=== PATIENT | male | born 1935 | race Caucasian/White ===

== ENCOUNTER → 2018-07-21 09:40 | Outpatient (CLI) | payer MEDICARE, OTHER, SELFPAY ==
[2018-07-21 13:07] LABS: Alanine Aminotransferase 29 IU/L (21-72); Albumin 4.3 g/dL (3.5-5.0); Albumin Globulin Ratio 1.7 (1.0-2.8); Alkaline Phosphatase 70 U/L (38-126); Aspartate Aminotransferase 38 IU/L (17-59); Bilirubin Total 1.1 mg/dL (0.2-1.3); Blood Urea Nitrogen 22 mg/dL (9-20); Calcium 9.3 mg/dL (8.4-10.2); Carbon Dioxide 30 mmol/L (22-32); Chloride 103 mmol/L (98-107); Estimated Glomerular Filt Rate > 60.0 mL/min (>60); Globulin 2.6 g/dL (1.7-4.1); Glucose 141 mg/dL (80-110); HEMOLYSIS < 15 (0-50); Potassium 5.1 mmol/L (3.4-5.1); Sodium 142 mmol/L (137-145); Total Protein 6.9 g/dL (6.3-8.2)
== END ==
PROVIDERS: Nurse Practitioner Family; Family Provider Family Medicine; PCP Family Medicine; Visit Provider Family Medicine
DX: M25.511 Pain in right shoulder (principal)
CPT/HCPCS: 36415; 80053

== ENCOUNTER → 2018-08-08 12:54 | Outpatient (CLI) | payer MEDICARE, OTHER, SELFPAY ==
--- NOTE | 2018-08-08 12:55 | DI.MRI.S_ITS ---
PROCEDURE: MR SHOULDER LT WO CON INDICATIONS: Shoulder pain with decreased ROM TECHNIQUE: Noncontrast oblique coronal T2 fast spin echo with fat saturation, oblique sagittal T1 spin echo and T2 fast spin echo with fat saturation, axial T1 spin echo and T2 fast spin echo with fat saturation through the shoulder. COMPARISON: [facility] [place], CR, XR SHOULDER 2+ VIEWS BILATERAL, 02/21/2018, 14:07. FINDINGS: Image quality: Prominent motion artifact is present on several imaging sequences, resulting in limited evaluation for subtle abnormalities. Rotator cuff: There is increased signal identified involving the supraspinatus and infraspinatus tendons with areas of partial thickness tearing. A complete tear is not definitively evident. The subscapularis and teres minor tendons appear to be intact. There is no significant rotator cuff muscle atrophy. Bones and bursae: No displaced fractures or dislocations are evident. No suspicious osseous lesions are present. There mild degenerative changes of the glenohumeral joint and severe degenerative changes of the chromic clavicular joint. There is no significant glenohumeral joint effusion. There is a moderate to large amount of fluid contained within the subacromial subdeltoid bursa. Capsule and soft tissues: Evaluation of the glenohumeral ligaments and of the glenoid labrum is difficult without intra-articular contrast. However, there does appear to be near circumferential tearing of the labrum, which is best appreciated on the superior and inferior margins of the labrum. Increased signal about the inferior glenohumeral ligament may be related to a ligamentous sprain. The long biceps tendon is normally positioned within the bicipital groove and appears to be grossly intact, but not well evaluated. IMPRESSION: 1. Limited MRI of the shoulder related to motion. 2. No definite full-thickness tear of the rotator cuff. 3. Tendinopathy and partial-thickness tearing of the supraspinatus and infraspinatus tendons. 4. Severe degenerative changes of the acromioclavicular joint may be resulting in subacromial impingement. 5. Large amount of fluid within the subacromial subdeltoid bursa is suspicious for bursitis. 6. Mild degenerative changes of the glenohumeral joint. 7. Probable circumferential tearing of the labrum. Dictated by: Silvestre Faust M.D. on 08/08/2018 at 16:29 Approved by: Silvestre Faust M.D. on 08/08/2018 at 16:32
== END ==
PROVIDERS: PCP Family Medicine; Visit Provider Family Medicine
DX: M25.512 Pain in left shoulder (principal); M75.112 Incomplete rotator cuff tear or rupture of left shoulder, not specified as traumatic; M19.012 Primary osteoarthritis, left shoulder
CPT/HCPCS: 73221

== ENCOUNTER → 2019-03-03 08:17 | Outpatient (CLI) | payer MEDICARE, OTHER, SELFPAY ==
[2019-03-03 09:00] LABS: Add Manual Diff / Slide Review NO; Basophils Absolute Auto 0 /uL (0-100); Basophils Percent Auto 0.2 % (0-2); Eosinophils Absolute Auto 200 /uL (0-450); Eosinophils Percent Auto 2.7 % (2-4); Hematocrit 45.5 % (41-53); Hemoglobin 14.9 g/dL (13.5-17.5); Lymphocytes Absolute Auto 1800 /uL (1100-4500); Lymphocytes Percent Auto 31.6 % (25-40); Mean Corpuscular HGB Conc 32.8 % (30-36); Mean Corpuscular Hemoglobin 30.8 PG (26-34); Mean Corpuscular Volume 93.8 fL (80-100); Monocytes Absolute Auto 500 /uL (0-900); Monocytes Percent Auto 9.5 % (3-14); Neutrophils Absolute Auto 3100 /uL (1500-7000); Platelet Count 195 X10^3/uL (150-400); Red Blood Cell Count 4.85 X10^6/uL (4.5-5.9); Red Cell Distribution Width 13.8 % (11.6-14.8); White Blood Cell Count 5.6 X10^3/uL (4.5-11.0)
[2019-03-03 09:07] LABS: Hemoglobin A1C% w Est Avg Glu 6.8 % (4.0-6.0)
[2019-03-03 09:28] LABS: Alanine Aminotransferase 30 IU/L (21-72); Albumin 4.2 g/dL (3.5-5.0); Albumin Globulin Ratio 1.6 (1.0-2.8); Alkaline Phosphatase 63 U/L (38-126); Aspartate Aminotransferase 24 IU/L (17-59); BUN Creatinine Ratio 19.2 (6-22); Bilirubin Total 1.5 mg/dL (0.2-1.3); Blood Urea Nitrogen 25 mg/dL (9-20); Carbon Dioxide 29 mmol/L (22-32); Chloride 101 mmol/L (98-107); Cholesterol 154 mg/dL (140-199); Estimated Glomerular Filt Rate 52.7 mL/min (>60); Globulin 2.7 g/dL (1.7-4.1); Glucose 162 mg/dL (80-110); HDL Cholesterol 51 mg/dL (40-60); HEMOLYSIS < 15 (0-50); LDL Cholesterol Calculated 82 mg/dL (<100); Potassium 4.6 mmol/L (3.4-5.1); Sodium 138 mmol/L (137-145); Total Protein 6.9 g/dL (6.3-8.2); Triglycerides 104 mg/dL (35-150)
[2019-03-03 14:59] LABS: TSH w/ Reflex to FT4 4.69 uIU/mL (0.47-4.68)
[2019-03-03 15:24] LABS: Free T4, Direct Thyroxine 1.22 ng/dL (0.78-2.19)
== END ==
PROVIDERS: PCP Family Medicine; Visit Provider Family Medicine
DX: E11.9 Type 2 diabetes mellitus without complications (principal); E78.5 Hyperlipidemia, unspecified; I10 Essential (primary) hypertension
CPT/HCPCS: 36415; 80053; 80061; 83036; 84439; 84443; 85025

== ENCOUNTER → 2020-08-13 08:52 | Outpatient (CLI) | payer MEDICARE, OTHER, SELFPAY ==
[2020-08-13 10:18] LABS: Add Manual Diff / Slide Review NO; Basophils Absolute Auto 0 /uL (0-100); Basophils Percent Auto 0.1 % (0-2); Eosinophils Absolute Auto 200 /uL (0-450); Eosinophils Percent Auto 3.8 % (2-4); Hematocrit 43.3 % (41-53); Hemoglobin 14.5 g/dL (13.5-17.5); Lymphocytes Absolute Auto 1700 /uL (1100-4500); Lymphocytes Percent Auto 31.5 % (25-40); Mean Corpuscular HGB Conc 33.4 % (30-36); Mean Corpuscular Hemoglobin 31.5 PG (26-34); Monocytes Absolute Auto 600 /uL (0-900); Monocytes Percent Auto 10.1 % (3-14); Neutrophils Absolute Auto 3000 /uL (1500-7000); Neutrophils Percent Auto 54.5 % (50-75); Platelet Count 175 X10^3/uL (150-400); Red Cell Distribution Width 13.5 % (11.6-14.8); White Blood Cell Count 5.4 X10^3/uL (4.5-11.0)
[2020-08-13 10:29] LABS: Alanine Aminotransferase 21 IU/L (<50); Albumin 4.1 g/dL (3.5-5.0); Albumin Globulin Ratio 1.6 (1.0-2.8); Alkaline Phosphatase 62 U/L (38-126); Aspartate Aminotransferase 24 IU/L (17-59); Bilirubin Total 1.4 mg/dL (0.2-1.3); Blood Urea Nitrogen 23 mg/dL (9-20); Calcium 9.2 mg/dL (8.4-10.2); Carbon Dioxide 30 mmol/L (22-32); Chloride 104 mmol/L (98-107); Cholesterol 149 mg/dL (140-199); Estimated Glomerular Filt Rate > 60.0 mL/min (>60); Globulin 2.5 g/dL (1.7-4.1); Glucose 164 mg/dL (80-110); HDL Cholesterol 55 mg/dL (40-60); HEMOLYSIS < 15 (0-50); LDL Cholesterol Calculated 70 mg/dL (<100); Potassium 4.5 mmol/L (3.4-5.1); Sodium 137 mmol/L (137-145); Total Protein 6.6 g/dL (6.3-8.2); Triglycerides 119 mg/dL (35-150)
[2020-08-13 10:35] LABS: Hemoglobin A1C% w Est Avg Glu 7.3 % (4.0-6.0)
[2020-08-13 10:59] LABS: TSH w/ Reflex to FT4 4.85 uIU/mL (0.47-4.68)
[2020-08-13 11:15] LABS: Creatinine Urine Random 143.8 mg/dL
[2020-08-13 11:19] LABS: Microalbumi Creatinin Ratio Ur 13.2 ug/mg CR (<30); Microalbumin Urine Random 1.9 mg/dL (0-1.6)
[2020-08-13 11:29] LABS: Free T4, Direct Thyroxine 0.87 ng/dL (0.78-2.19)
== END ==
PROVIDERS: PCP Family Medicine; Referring Provider Family Medicine; Visit Provider Family Medicine
DX: E11.9 Type 2 diabetes mellitus without complications (principal); E78.5 Hyperlipidemia, unspecified; I10 Essential (primary) hypertension; I48.91 Unspecified atrial fibrillation
CPT/HCPCS: 36415; 80053; 80061; 82043; 82570; 83036; 84439; 84443; 85025

== ENCOUNTER → 2020-10-22 14:38 | Outpatient (CLI) | payer MEDICARE, OTHER, SELFPAY ==
--- NOTE | 2020-10-22 14:42 | DI.RAD.S_ITS ---
PROCEDURE: XR ANKLE LT MIN 3V INDICATIONS: FOOT CONTUSION TECHNIQUE: 3 views of the ankle were acquired. COMPARISON: None. FINDINGS: Bones: Scattered degenerative subchondral sclerosis and spurring. Plantar calcaneal spur. Soft tissues: No tibiotalar joint effusion. Achilles tendon appears normal. IMPRESSION: Large plantar calcaneal spur No fracture. If the patient's pain or other symptoms persist, consider further evaluation with MRI Dictated by: Manuel Weston M.D. on 10/22/2020 at 15:34 Approved by: Manuel Weston M.D. on 10/22/2020 at 15:41
--- NOTE | 2020-10-22 14:42 | DI.RAD.S_ITS ---
PROCEDURE: XR FOOT LT MIN 3V INDICATIONS: FOOT CONTUSION TECHNIQUE: 3 views of the foot were acquired. COMPARISON: None. FINDINGS: Bones: No fracture. Mild 1st MTP joint degeneration and diffuse interphalangeal degenerative sclerosis and spurring. Large plantar calcaneal spur.. There is mild diffuse hindfoot and midfoot degenerative spurring and sclerosis. Soft tissues: No tibiotalar joint effusion. Achilles tendon appears normal. IMPRESSION: No fracture. Degenerative changes as above, including plantar calcaneal spur. Dictated by: Manuel Weston M.D. on 10/22/2020 at 15:41 Approved by: Manuel Weston M.D. on 10/22/2020 at 15:43
== END ==
PROVIDERS: PCP Family Medicine; Referring Provider Physician Assistant; Visit Provider Physician Assistant
DX: M79.672 Pain in left foot (principal); S90.32XA Contusion of left foot, initial encounter; M77.32 Calcaneal spur, left foot; M19.072 Primary osteoarthritis, left ankle and foot
CPT/HCPCS: 73610; 73630

== ENCOUNTER 2021-05-30 11:24 | Observation (INO) | payer MEDICARE, OTHER, SELFPAY ==
[2021-05-30] VITALS (8 sets, daily range): BP systolic 147–189; BP diastolic 66–110; PULSE 42–60; RESP 16–18; TEMP 36.2–36.4; O2SAT 95–99; BMI 30.8; BMI 31.2
--- NOTE | 2021-05-30 11:27 | ED_ITS ---
HPI - GI Bleed General Chief complaint: GI Bleed Stated complaint: urine and bowel movement with blood Time Seen by Provider: 05/30/21 11:27 History of Present Illness HPI Narrative: 86-year-old male nonsmoker with history of AFib on Pradaxa, hypertension, diabetes presents with 3 days of gradually worsening blood in his urine. He states it started dark and has become progressively more bright red and today was all blood. He denies any pain, frequency or urgency. Additionally he states that he had a large painless bowel movement today that was all bright red blood. He denies systemic symptoms such as dizziness, weakness or lightheadedness. He has had no chest pain or shortness of breath. He denies any abdominal pain. Related Data Previous Rx's Medication Instructions Recorded atorvastatin 40 mg tablet (Lipitor) 40 mg PO HS #90 tab 08/08/20 lisinopril 20 mg tablet (Zestril) 20 mg PO Q DAY #90 tab 08/08/20 metformin 500 mg tablet 500 mg PO BID #180 tab 08/08/20 (Glucophage) dabigatran etexilate 150 mg See Rx Instructions .ROUTE 09/04/20 capsule (Pradaxa) .COMPLEX #180 cap metoprolol succinate 25 mg See Rx Instructions .ROUTE 05/27/21 tablet,extended release 24 hr .COMPLEX #90 tab Allergies Allergy/AdvReac Type Severity Reaction Status Date / Time No Known Drug Allergies Allergy Verified 10/22/20 14:15 Review of Systems Review of Systems Narrative: GENERAL: See HPI HEENT: Denies sinus pain, ear pain, sore throat, difficulty swallowing, dizziness. RESPIRATORY: Denies dyspnea, cough, wheezing, hemoptysis, sputum. CARDIOVASCULAR: Denies chest pain, palpitations, orthopnea, edema, GASTROINTESTINAL: See HPI : See HPI MUSCULOSKELETAL: denies weakness, joint pain, or bony pain SKIN: Denies rash, skin lesions, or other NEUROLOGIC: Denies weakness, headache, numbness, change in speech, confusion, seizures, incoordination. PSYCHIATRIC: No concerning psychosocial issues. 12 point review of systems is negative except for those stated above Patient History Medical History Atrial fibrillation (2013) CAD (coronary artery disease) Chicken pox Colon polyps Glaucoma (2013) Hyperlipidemia Hypertension Insulin resistance Left foot pain Mumps Recurrent sinusitis (1968) Skin cancer (2010) Surgical History Anesthesia History of surgery (1977) Status post arthroscopy (2009) Family History Brother CAD (coronary artery disease) Diabetes mellitus High cholesterol Heart attack Brother Diabetes mellitus Heart disease High cholesterol Daughter Arthritis Father Heart disease Hypertension Mother Aortic valve disease Cancer High cholesterol Sister Cancer High cholesterol Sister Cancer Heavy smoker Daughter No problems noted. Social History marital status: household members: spouse Smoking Status: Never smoker alcohol intake: current substance use type: does not use Smoking Status: Never smoker Exam Narrative Exam Narrative: GENERAL: 86] year old patient appears stated age. Well- developed patient, in mild distress. HEAD: Atraumatic. Normocephalic. EYES: Pupils equal round and reactive. Extraocular motions intact. No scleral icterus. No injection or drainage. ENT: Nose without bleeding, purulent drainage. Throat without erythema, tonsillar hypertrophy or exudate. Airway patent. NECK: Trachea midline. Non tender CARDIOVASCULAR: Regular rate and rhythm without murmurs, gallops, or rubs. RESPIRATORY: Clear to auscultation. Breath sounds equal bilaterally. No wheezes, rales, or rhonchi. GASTROINTESTINAL: Abdomen soft, non-tender, nondistended. EXTREMITIES: No edema or joint tenderness. BACK: Nontender without deformity or crepitance. No flank tenderness. NEURO: AOx3. SKIN: No rash or erythema of visible areas Initial Vital Signs Initial Vital Signs: Vital Signs Temperature 97.5 F L 05/30/21 11:35 Pulse Rate 60 05/30/21 11:35 Respiratory Rate 16 05/30/21 11:35 Blood Pressure 186/81 H 05/30/21 11:35 Pulse Oximetry 99 05/30/21 11:35 Course Orders Ordered: ED Orders 05/30/21 11:40 COVID19 - ADMIT (MENDER HAND swab/PCR) Stat Complete Blood Count AUTO DIFF Stat Comprehensive Metabolic Panel Stat Magnesium Stat Partial Thromboplastin Time Stat Prothrombin Time INR Stat Troponin & CK Cardiac Panel Stat Type and Screen Stat 05/30/21 12:15 EKG-12 Lead Routine 05/30/21 12:45 UA Complete [Urinalysis and Microscopic] Stat Acetaminophen (Acetaminophen 325 Mg Tablet) 650 mg PO Q6HR PRN PRN Reason: Fever/Mild Pain (1-3) Atorvastatin Calcium (Atorvastatin 20 Mg Tablet) 40 mg PO BEDTIME [facility] Sodium Chloride (Normal Saline 0.9%) 1,000 mls @ 100 mls/hr IV CONT [facility] Last Admin: 05/30/21 16:34 Dose: 100 mls/hr Documented by: LUCAS Lisinopril (Lisinopril 20 Mg Tablet) 20 mg PO DAILY [facility] Metformin HCl (Metformin Hcl 500 Mg Tablet) 500 mg PO BIDWM [facility] Last Admin: 05/30/21 18:26 Dose: 500 mg Documented by: LUCAS Metoprolol Succinate (Metoprolol Er 25 Mg Tablet) 25 mg PO DAILY [facility] Naloxone HCl (Naloxone 0.4 Mg/Ml Vial) 0.2 mg IV Q2MIN PRN PRN Reason: Opiate Reversal Reevaluation(s) Reevaluation #1: Patient just produced another urine here which is paige blood. Consultations Consultation #1: Discussion with on-call provider, Dr. Crane, she will admit the patient and see him here in the department Vital Signs Vital signs: Vital Signs - 8 hr 05/30/21 11:35 05/30/21 11:58 05/30/21 12:01 Temperature 97.5 F L Pulse Rate 60 43 L 45 L Respiratory Rate 16 16 Blood Pressure 186/81 H 148/66 H Pulse Oximetry 99 96 96 05/30/21 12:30 05/30/21 13:00 05/30/21 13:01 Temperature Pulse Rate 51 L 47 L 46 L Respiratory Rate 16 16 16 Blood Pressure 147/110 H 189/109 H Pulse Oximetry 96 96 95 MDM - GI Bleed Lab Data Result diagrams: 05/30/21 16:15 05/30/21 11:40 Labs: Lab Results 05/30/21 05/30/21 05/30/21 Range/Units 11:40 11:40 11:40 WBC 6.4 (4.5-11.0) X10^3/uL RBC 4.98 (4.5-5.9) X10^6/uL Hgb 15.6 (13.5-17.5) g/dL Hct 46.7 (41-53) % MCV 93.8 (80-100) fL MCH 31.3 (26-34) PG MCHC 33.3 (30-36) % RDW 13.6 (11.6-14.8) % Plt Count 188 (150-400) X10^3/uL Neut % (Auto) 54.2 (50-75) % Lymph % (Auto) 32.8 (25-40) % [place] % (Auto) 10.2 (3-14) % Eos % (Auto) 2.5 (2-4) % Baso % (Auto) 0.3 (0-2) % Neut # (Auto) 3500 (0402-9573) /uL Lymph # (Auto) 2100 (1327-8325) /uL [place] # (Auto) 700 (0-900) /uL Eos # (Auto) 200 (0-450) /uL Baso # (Auto) 0 (0-100) /uL PT 13.8 H (10.1-12.7) SECONDS INR 1.2 (0.9-1.3) APTT 52 H (26.4-36.2) SECONDS Sodium 138 (137-145) mmol/L Potassium 4.4 (3.4-5.1) mmol/L Chloride 106 (98-107) mmol/L Carbon Dioxide 23 (22-32) mmol/L BUN 24 H (9-20) mg/dL Creatinine 1.24 (0.66-1.25) mg/dL Estimated GFR 55.4 L (>60) mL/min BUN/Creatinine Ratio 19.4 (6-22) Glucose 334 H (80-110) mg/dL Calcium 9.9 (8.4-10.2) mg/dL Magnesium 1.8 (1.6-2.3) mg/dL Total Bilirubin 1.6 H (0.2-1.3) mg/dL AST 27 (17-59) IU/L ALT 24 (<50) IU/L Alkaline Phosphatase 65 (38-126) U/L Total Creatine Kinase 70 (55-170) U/L CK-MB (CK-2) TNP CK-MB (CK-2) Rel Index TNP Troponin I < 0.012 (0.01-0.034) ng/mL Total Protein 7.5 (6.3-8.2) g/dL Albumin 4.5 (3.5-5.0) g/dL Globulin 3.0 (1.7-4.1) g/dL Albumin/Globulin Ratio 1.5 (1.0-2.8) Urine Color Urine Appearance Urine pH (4.5-8.0) Ur Specific [place] (1.000-1.035) Urine Protein (Negative) Urine Glucose (UA) (Negative) g/dL Urine Ketones (NEGATIVE) Urine Occult Blood (Negative) Urine Nitrate (Negative) Urine Bilirubin (NEGATIVE) Urine Urobilinogen (0.2) E.U./dL Ur Leukocyte Esterase (NEGATIVE) Urine RBC (0-5/HPF) Urine WBC (0-5/HPF) Urine Bacteria (None) Ur Culture Indicated? SARS-CoV-2 (PCR) (Negative) Blood Type Antibody Screen 05/30/21 05/30/21 05/30/21 Range/Units 11:40 11:40 12:45 WBC (4.5-11.0) X10^3/uL RBC (4.5-5.9) X10^6/uL Hgb (13.5-17.5) g/dL Hct (41-53) % MCV (80-100) fL MCH (26-34) PG MCHC (30-36) % RDW (11.6-14.8) % Plt Count (150-400) X10^3/uL Neut % (Auto) (50-75) % Lymph % (Auto) (25-40) % [place] % (Auto) (3-14) % Eos % (Auto) (2-4) % Baso % (Auto) (0-2) % Neut # (Auto) (6537-1557) /uL Lymph # (Auto) (2133-0740) /uL [place] # (Auto) (0-900) /uL Eos # (Auto) (0-450) /uL Baso # (Auto) (0-100) /uL PT (10.1-12.7) SECONDS INR (0.9-1.3) APTT (26.4-36.2) SECONDS Sodium (137-145) mmol/L Potassium (3.4-5.1) mmol/L Chloride (98-107) mmol/L Carbon Dioxide (22-32) mmol/L BUN (9-20) mg/dL Creatinine (0.66-1.25) mg/dL Estimated GFR (>60) mL/min BUN/Creatinine Ratio (6-22) Glucose (80-110) mg/dL Calcium (8.4-10.2) mg/dL Magnesium (1.6-2.3) mg/dL Total Bilirubin (0.2-1.3) mg/dL AST (17-59) IU/L ALT (<50) IU/L Alkaline Phosphatase (38-126) U/L Total Creatine Kinase (55-170) U/L CK-MB (CK-2) CK-MB (CK-2) Rel Index Troponin I (0.01-0.034) ng/mL Total Protein (6.3-8.2) g/dL Albumin (3.5-5.0) g/dL Globulin (1.7-4.1) g/dL Albumin/Globulin Ratio (1.0-2.8) Urine Color Red Urine Appearance Other Urine pH 5.0 (4.5-8.0) Ur Specific [place] 1.020 (1.000-1.035) Urine Protein 2+ H (Negative) Urine Glucose (UA) 2+ H (Negative) g/dL Urine Ketones Negative (NEGATIVE) Urine Occult Blood 3+ H (Negative) Urine Nitrate Negative (Negative) Urine Bilirubin Negative (NEGATIVE) Urine Urobilinogen 0.2 (0.2) E.U./dL Ur Leukocyte Esterase Trace H (NEGATIVE) Urine RBC >100/hpf H (0-5/HPF) Urine WBC None seen (0-5/HPF) Urine Bacteria None seen (None) Ur Culture Indicated? Cult not indicated SARS-CoV-2 (PCR) Negative (Negative) Blood Type A Negative Antibody Screen Negative MDM Narrative Medical decision making narrative: Patient on anticoagulation with bloody stool and gross hematuria will require hospitalization for trending of his blood counts and possible endoscopy. Return precautions given and questions answered to his apparent satisfaction Discharge Plan Departure Patient Disposition: Admitted as Observation Clinical Impression: Acute GI bleeding, Hematuria, Anticoagulation adequate Admit Date/Time: 05/30/21 13:21 Admit Provider: Emma Crane
[2021-05-30 11:53] LABS: Add Manual Diff / Slide Review NO; Basophils Absolute Auto 0 /uL (0-100); Basophils Percent Auto 0.3 % (0-2); Eosinophils Absolute Auto 200 /uL (0-450); Eosinophils Percent Auto 2.5 % (2-4); Hematocrit 46.7 % (41-53); Hemoglobin 15.6 g/dL (13.5-17.5); Lymphocytes Absolute Auto 2100 /uL (1100-4500); Lymphocytes Percent Auto 32.8 % (25-40); Mean Corpuscular HGB Conc 33.3 % (30-36); Mean Corpuscular Hemoglobin 31.3 PG (26-34); Mean Corpuscular Volume 93.8 fL (80-100); Monocytes Absolute Auto 700 /uL (0-900); Monocytes Percent Auto 10.2 % (3-14); Neutrophils Absolute Auto 3500 /uL (1500-7000); Neutrophils Percent Auto 54.2 % (50-75); Platelet Count 188 X10^3/uL (150-400); Red Blood Cell Count 4.98 X10^6/uL (4.5-5.9); Red Cell Distribution Width 13.6 % (11.6-14.8); White Blood Cell Count 6.4 X10^3/uL (4.5-11.0)
[2021-05-30 12:09] LABS: INR 1.2 (0.9-1.3); Prothrombin Time 13.8 SECONDS (10.1-12.7)
[2021-05-30 12:11] LABS: PTT Partial Thromboplastin Tim 52 SECONDS (26.4-36.2)
[2021-05-30 12:17] LABS: Alanine Aminotransferase 24 IU/L (<50); Albumin 4.5 g/dL (3.5-5.0); Albumin Globulin Ratio 1.5 (1.0-2.8); Alkaline Phosphatase 65 U/L (38-126); Aspartate Aminotransferase 27 IU/L (17-59); BUN Creatinine Ratio 19.4 (6-22); Bilirubin Total 1.6 mg/dL (0.2-1.3); Blood Urea Nitrogen 24 mg/dL (9-20); Calcium 9.9 mg/dL (8.4-10.2); Carbon Dioxide 23 mmol/L (22-32); Chloride 106 mmol/L (98-107); Creatine Kinase 70 U/L (55-170); Estimated Glomerular Filt Rate 55.4 mL/min (>60); Glucose 334 mg/dL (80-110); HEMOLYSIS < 15 (0-50); Magnesium 1.8 mg/dL (1.6-2.3); Potassium 4.4 mmol/L (3.4-5.1); Sodium 138 mmol/L (137-145); Total Protein 7.5 g/dL (6.3-8.2)
[2021-05-30 12:28] LABS: Troponin I < 0.012 ng/mL (0.01-0.034)
[2021-05-30 12:47] LABS: COVID19 - ADMIT (NP swab/PCR) Negative (Negative)
[2021-05-30 13:11] LABS: Bacteria Urine None Seen; WBC Urine None Seen (0-5/HPF)
--- NOTE | 2021-05-30 13:37 | P.HP_ITS ---
History of Present Illness History of Present Illness Date Patient Seen: 05/30/21 Time Patient Seen: 12:45 Chief complaint: urine and bowel movement with blood Narrative: Pt is an 86yo man with DM Type 2, HTN, atrial fibrillation on chronic anticoagulation who presented with gross hematuria and hematochezia. The pt reports that a few days ago his urine started to appear slightly darker than usual. This has gradually worsened since that time. This morning when he urinated, it was paige blood that came out. The patient also has daily bowel movement this morning, and states the toilet bowl was ?full of dark blood ?afterwards. The patient denies any additional symptoms. He denies any recurrent bloody noses or easy bruising. He ran his usual 2 miles yesterday, and states he would have run it again today until he saw the blood in the toilet bowl. He denies any dysuria, urinary frequency urgency, abdominal pain. He denies any recent palpitations, shortness of breath, or lightheadedness. He is overall feeling ?great. ? He has been on the Pradaxa for many years and denies any issues with this in the past. His last colonoscopy was in 2013 and was reportedly normal. Patient History Medical History Atrial fibrillation (2013) CAD (coronary artery disease) Chicken pox Colon polyps Glaucoma (2013) Hyperlipidemia Hypertension Insulin resistance Left foot pain Mumps Recurrent sinusitis (1968) Skin cancer (2010) Surgical History Anesthesia History of surgery (1977) Status post arthroscopy (2009) Family & Social History Family History Brother CAD (coronary artery disease) Diabetes mellitus High cholesterol Heart attack Brother Diabetes mellitus Heart disease High cholesterol Daughter Arthritis Father Heart disease Hypertension Mother Aortic valve disease Cancer High cholesterol Sister Cancer High cholesterol Sister Cancer Heavy smoker Daughter No problems noted. Safety & Behavioral: Feels Safe in Current Yes Environment Been Physically Hurt or No Threatened By a Person Tobacco & Substance use: Smoking Status Never smoker alcohol intake current alcohol intake frequency 0-2 drinks per day Substance Use Type does not use Meds Home Medications and Allergies Home Medications Medication Instructions Recorded Confirmed Type atorvastatin 40 mg tablet (Lipitor) 40 mg PO HS #90 tab 08/08/20 10/22/20 Rx lisinopril 20 mg tablet (Zestril) 20 mg PO Q DAY #90 tab 08/08/20 10/22/20 Rx metformin 500 mg tablet 500 mg PO BID #180 tab 08/08/20 10/22/20 Rx (Glucophage) dabigatran etexilate 150 mg See Rx Instructions .ROUTE 09/04/20 10/22/20 Rx capsule (Pradaxa) .COMPLEX #180 cap metoprolol succinate 25 mg See Rx Instructions .ROUTE 05/27/21 Rx tablet,extended release 24 hr .COMPLEX #90 tab Allergies Allergy/AdvReac Type Severity Reaction Status Date / Time No Known Drug Allergies Allergy Verified 10/22/20 14:15 Exam Vital Signs (past 8 hours): - 05/30/21 11:35 05/30/21 11:58 05/30/21 12:01 Temperature 97.5 F L Pulse Rate 60 43 L 45 L Respiratory Rate 16 16 Blood Pressure 186/81 H 148/66 H Pulse Oximetry 99 96 96 05/30/21 12:30 05/30/21 13:00 05/30/21 13:01 Temperature Pulse Rate 51 L 47 L 46 L Respiratory Rate 16 16 16 Blood Pressure 147/110 H 189/109 H Pulse Oximetry 96 96 95 Oxygen Delivery Method Room Air Narrative Exam Narrative: GEN - alert, cooperative and no distress HEENT - normocephalic and atraumatic, moist mucus membranes NECK - FROM, no adenopathy, no JVD HEART - RRR, S1, S2 normal, no S3 or S4, no murmurs LUNGS - symmetric chest rise, no accessory muscles, clear to auscultation bila terally ABD - flat, nondistended, normal bowel sounds, soft, nontender and no hepatomegaly, splenomegaly or masses EXT - no cyanosis, clubbing or edema SKIN - no rashes or suspicious lesions NEURO - no gross deficits Objective Labs Result Diagrams: 05/30/21 11:40 05/30/21 11:40 Labs: Laboratory Results - last 24 hr 05/30/21 05/30/21 05/30/21 11:40 11:40 11:40 WBC 6.4 RBC 4.98 Hgb 15.6 Hct 46.7 MCV 93.8 MCH 31.3 MCHC 33.3 RDW 13.6 Plt Count 188 Neut % (Auto) 54.2 Lymph % (Auto) 32.8 [place] % (Auto) 10.2 Eos % (Auto) 2.5 Baso % (Auto) 0.3 Neut # (Auto) 3500 Lymph # (Auto) 2100 [place] # (Auto) 700 Eos # (Auto) 200 Baso # (Auto) 0 PT 13.8 H INR 1.2 APTT 52 H Sodium 138 Potassium 4.4 Chloride 106 Carbon Dioxide 23 BUN 24 H Creatinine 1.24 Estimated GFR 55.4 L BUN/Creatinine Ratio 19.4 Glucose 334 H Calcium 9.9 Magnesium 1.8 Total Bilirubin 1.6 H AST 27 ALT 24 Alkaline Phosphatase 65 Total Creatine Kinase 70 CK-MB (CK-2) TNP CK-MB (CK-2) Rel Index TNP Troponin I < 0.012 Total Protein 7.5 Albumin 4.5 Globulin 3.0 Albumin/Globulin Ratio 1.5 SARS-CoV-2 (PCR) Blood Type Antibody Screen 05/30/21 05/30/21 11:40 11:40 WBC RBC Hgb Hct MCV MCH MCHC RDW Plt Count Neut % (Auto) Lymph % (Auto) [place] % (Auto) Eos % (Auto) Baso % (Auto) Neut # (Auto) Lymph # (Auto) [place] # (Auto) Eos # (Auto) Baso # (Auto) PT INR APTT Sodium Potassium Chloride Carbon Dioxide BUN Creatinine Estimated GFR BUN/Creatinine Ratio Glucose Calcium Magnesium Total Bilirubin AST ALT Alkaline Phosphatase Total Creatine Kinase CK-MB (CK-2) CK-MB (CK-2) Rel Index Troponin I Total Protein Albumin Globulin Albumin/Globulin Ratio SARS-CoV-2 (PCR) Negative Blood Type A Negative Antibody Screen Negative Assessment & Plan Assessment & Plan narrative: Pt is an 86yo man with DM Type 2, HTN, atrial fibrillation on chronic anticoagulation who presented with gross hematuria and hematochezia. Pt is on Pradaxa, but denies any issues with the medication or mismanagement. There has been no change in his bowel or urinary habits recently. H/H is stable. 1) Gross hematuria: - Hold Pradaxa, pt did take dose this morning - CT abd/pelvis w/ and w/o to evaluate further for cause 2) Hematochezia: No BM since in the hospital yet, single episode this morning. - Continue to monitor - H/H stable - Hold Pradaxa as above - Due to pt being quite stable at this time, without drop in H/H, will not pursue more urgent colonoscopy at this time. Low threshold for surgical consultation however. - NPO for now with mIVF 3) DM Type 2: Historically with good control - Continue home Metformin 4) Atrial fibrillation, HTN: Pt with chronic bradycardia, however. - Hesitantly continue home Metoprolol - Continue home Lisinopril DVT ppx: SCDs FEN: NPO overnight pending further BMs Code: Full Dispo: Pending stabilization of bleeding of Pradaxa, additional work-up as above.
[2021-05-30 13:47] LABS: Appearance Urine UA OTHER; Bilirubin Urine UA NEGATIVE (NEGATIVE); Color Urine UA RED; Glucose Urine UA 2+ g/dL (Negative); Ketones Urine UA NEGATIVE (NEGATIVE); Leukocyte Esterase Urine UA TRACE (NEGATIVE); Nitrite Urine UA NEGATIVE (Negative); Occult Blood Urine UA 3+ (Negative); Protein Urine UA 2+ (Negative); Urobilinogen Urine UA 0.2 E.U./dL (0.2)
[2021-05-30 13:53] LABS: Culture Indicated Urine Cult Not Indicated; RBC Urine >100/HPF (0-5/HPF)
--- NOTE | 2021-05-30 14:18 | DI.CT.S_ITS ---
PROCEDURE: CT ABDOMEN PELVIS WO/W CON INDICATIONS: gross hematuria TECHNIQUE: Optional 5 mm thick noncontrast images acquired from the diaphragm to the symphysis pubis. After the administration of intravenous contrast, 5 mm thick images acquired from the diaphragm to the symphysis pubis after a 10-minute delay. 2 mm thick coronal and sagittal reformats were then performed of the kidneys and ureters. For radiation dose reduction, the following was used: automated exposure control, adjustment of mA and/or kV according to patient size. COMPARISON: None. FINDINGS: Image quality: Excellent. Lung bases: Lung bases are clear. Mild cardiomegaly with right ventricular and right atrial enlargement. Urinary system: There is a infiltrative enhancing exophytic mass off the junction between the middle and upper pole of the right kidney, highly suspicious for renal cell carcinoma, measuring approximately 4.7 x 4.4 cm. There is ill definition of the surrounding fat, with some nodularity suggesting infiltration of Gerota's fascia. There may not be a plane between the mass and the inferior surface of the liver. There is no right hydronephrosis. There is no evidence of involvement of the right renal vein. Incidental nonobstructing right renal stone. The left kidney and ureter are unremarkable without masses or stones or hydronephrosis. Bladder is unremarkable. Enlarged prostate indenting on the base of the bladder. Other solid organs: Liver is normal in size and enhancement. Gallbladder is unremarkable . Biliary system is non dilated. Pancreas enhances normally. Spleen is normal in size and enhancement. No adrenal nodules. Peritoneum and bowel: Bowel loops demonstrate normal wall thickness and caliber. No free fluid or air. Nodes and vessels: No retroperitoneal or mesenteric adenopathy by size criteria. Aorta and inferior vena cava are normal in size. Abdominal wall: No ventral hernias. Pelvis: No pathologic free pelvic fluid. Bilateral fat containing inguinal hernias, left greater than right. Bones: No suspicious bony lesions. No vertebral body compression fractures. IMPRESSION: 1. There is an approximately 4.7 cm maximum diameter infiltrative mass off the right kidney, likely a renal cell carcinoma. It extends into the surrounding fat and may invade the surface of the adjacent liver. 2. No evidence of metastatic disease. Dictated by: Caesar Lyons M.D. on 05/30/2021 at 14:56 Approved by: Caesar Lyons M.D. on 05/30/2021 at 15:02
--- NOTE | 2021-05-30 14:36 | PC.NURSE ---
Patient is admitted for gi bleed, his urine seems to be the issue at this time. He is urinating red bloody urine and states that he has had 1 bowel movement that did have some bleeding. He is independent in the room and states that he runs 2.5 miles a day and is very active. Denies pain. BS cta, high 90s on RA. Just came back from CT scan. Back to bed and resting comfortably.
[2021-05-30 16:28] LABS: Add Manual Diff / Slide Review NO; Basophils Absolute Auto 0 /uL (0-100); Basophils Percent Auto 0.6 % (0-2); Eosinophils Absolute Auto 200 /uL (0-450); Eosinophils Percent Auto 2.5 % (2-4); Hemoglobin 14.7 g/dL (13.5-17.5); Lymphocytes Absolute Auto 2000 /uL (1100-4500); Lymphocytes Percent Auto 33.9 % (25-40); Mean Corpuscular HGB Conc 33.4 % (30-36); Mean Corpuscular Hemoglobin 31.2 PG (26-34); Mean Corpuscular Volume 93.4 fL (80-100); Monocytes Absolute Auto 700 /uL (0-900); Monocytes Percent Auto 11.5 % (3-14); Neutrophils Absolute Auto 3100 /uL (1500-7000); Neutrophils Percent Auto 51.5 % (50-75); Platelet Count 173 X10^3/uL (150-400); Red Blood Cell Count 4.71 X10^6/uL (4.5-5.9); Red Cell Distribution Width 13.5 % (11.6-14.8)
[2021-05-30] MEDS: SODIUM CHLORIDE 0.9% 1,000 ML 100 ML IV (16:34)
[2021-05-30] MEDS: METFORMIN HCL 500 MG TABLET PO (18:26)
[2021-05-30] MEDS: ATORVASTATIN 20 MG TABLET 40 MG PO (20:47)
[2021-05-31] VITALS: BP 128/62; PULSE 52; RESP 18; TEMP 36.2; O2SAT 97
[2021-05-31 05:18] LABS: Add Manual Diff / Slide Review NO; Basophils Absolute Auto 0 /uL (0-100); Basophils Percent Auto 0.2 % (0-2); Eosinophils Absolute Auto 200 /uL (0-450); Eosinophils Percent Auto 3.6 % (2-4); Hematocrit 41.4 % (41-53); Hemoglobin 13.9 g/dL (13.5-17.5); Lymphocytes Absolute Auto 1900 /uL (1100-4500); Lymphocytes Percent Auto 32.7 % (25-40); Mean Corpuscular HGB Conc 33.6 % (30-36); Mean Corpuscular Hemoglobin 31.4 PG (26-34); Mean Corpuscular Volume 93.4 fL (80-100); Monocytes Absolute Auto 700 /uL (0-900); Neutrophils Absolute Auto 3000 /uL (1500-7000); Neutrophils Percent Auto 51.5 % (50-75); Platelet Count 161 X10^3/uL (150-400); Red Blood Cell Count 4.43 X10^6/uL (4.5-5.9); Red Cell Distribution Width 13.8 % (11.6-14.8); White Blood Cell Count 5.8 X10^3/uL (4.5-11.0)
[2021-05-31 05:32] LABS: BUN Creatinine Ratio 17.8 (6-22); Blood Urea Nitrogen 21 mg/dL (9-20); Calcium 8.6 mg/dL (8.4-10.2); Carbon Dioxide 29 mmol/L (22-32); Chloride 107 mmol/L (98-107); Estimated Glomerular Filt Rate 58.7 mL/min (>60); Glucose 150 mg/dL (80-110); HEMOLYSIS < 15 (0-50); Potassium 4.7 mmol/L (3.4-5.1); Sodium 138 mmol/L (137-145)
[2021-05-31 05:55] VITALS: BP 142/69; PULSE 41; RESP 18; TEMP 36.5; O2SAT 94
[2021-05-31 07:25] VITALS: BP 157/82; PULSE 53; RESP 18; TEMP 36.3; O2SAT 93
[2021-05-31] MEDS: lisinopriL 20 MG TABLET PO (08:19)
[2021-05-31] MEDS: METOPROLOL ER 25 MG TABLET PO (08:19)
[2021-05-31] MEDS: METFORMIN HCL 500 MG TABLET PO (08:19)
--- NOTE | 2021-05-31 10:11 | PC.NURSE ---
Assess- Patient is alert and oriented x3. He voided 100cc of dark red bloody urine. He has not had a bowel movement yet this morning, will check for blood when is able to go. He is up independently and has remained NPO. has not rounded on patient, when he is here, will ask for a diet. Resting comfortably and watching television.
--- NOTE | 2021-05-31 10:45 | PC.NURSE ---
Patient was able to take most of his medication whole this morning with apple sauce. He did not have any choking episodes. It was more difficult for him to take his rytary capsules, these were crushed in apple sauce and he also swallowed these well.
[2021-05-31 11:38] VITALS: BP 131/87; PULSE 50; RESP 16; TEMP 36.4
--- NOTE | 2021-05-31 12:26 | P.DS_ITS ---
History of Present Illness History of Present Illness Date Patient Seen: 05/31/21 Time Patient Seen: 12:26 Date of Onset of Symptoms: 05/30/21 Chief complaint: urine and bowel movement with blood Narrative: See history and physical by Dr. Crane From yesterday Discharge Providers Provider Date of admission: 05/30/21 13:21 Discharge Date: 05/31/21 Primary care physician: Jong Shine MD Discharge provider: Pb Mattson MD Summary Hospital Course Discharge Diagnosis: Right renal mass Hematuria GI bleed Type 2 diabetes Atrial fibrillation Hospital Course: Right renal mass. Patient was brought in secondary to his combination of urinary and rectal bleeding. During the workup with CT scan for that he was found to have a right renal mass which is very concerning for possible cancerous presents. Patient was seen by his usual physician and a process for getting set up with urologist was being undertaken. Up process will continue and he will follow up with urologist as outpatient. Patient was currently with minimal blood in his urine. After Pradaxa was stopped. Hematuria. Patient was with gross hematuria. He was admitted and Pradaxa was stopped. Probable cause was renal carcinoma newly diagnosed. Patient will be followed with urologist at this point he is having no pain. No fevers no chills. Patient was noted to not have what appeared to be infected urine and no antibiotics were started. Culture was not done due to no obvious reason. GI bleed. Patient had 1 episode of bright red blood per rectum prior to admission. Hematocrit was stable without significant drop. He had no further bleeding during his hospitalization despite having bowel movements. His Pradaxa was stopped and will be continued to be stopped until he is evaluated by the urologist. Workup will be evaluated by his usual primary care provider on follow-up. Type 2 diabetes. Stable throughout the course. Atrial fibrillation. Patient with active bleeding and Pradaxa was discontinued he understands versus small risk but has no other significant change. Will be restarted on Pradaxa when able as per urologist and his primary care provider on outpatient evaluation Status at Discharge Cognitive/behavioral status at discharge: oriented Functional status at discharge: independent ambulation Overall status at discharge: patient is progressing back to baseline Exam Vital Signs (past 8 hours): - 05/31/21 05:55 05/31/21 07:25 05/31/21 11:38 Temperature 97.7 F 97.3 F L 97.6 F Pulse Rate 41 L 53 L 50 L Respiratory Rate 18 18 16 Blood Pressure 142/69 H 157/82 H 131/87 Pulse Oximetry 94 93 Oxygen Delivery Method Room Air Oxygen Flow Rate 0 Narrative Exam Narrative: Alert smiling elderly male lying in bed no acute distress. Mucous membranes moist. Neck supple without adenopathy. Lungs are clear. Heart is irregular but no murmurs clicks rubs or gallops. Controlled rate. Abdomen is soft positive bowel sounds nontender Objective Labs Result Diagrams: 05/31/21 04:54 05/31/21 04:54 Labs: Laboratory Results - last 24 hr 05/30/21 05/30/21 05/30/21 11:40 11:40 11:40 WBC RBC Hgb Hct MCV MCH MCHC RDW Plt Count Neut % (Auto) Lymph % (Auto) [place] % (Auto) Eos % (Auto) Baso % (Auto) Neut # (Auto) Lymph # (Auto) [place] # (Auto) Eos # (Auto) Baso # (Auto) Sodium Potassium Chloride Carbon Dioxide BUN Creatinine Estimated GFR BUN/Creatinine Ratio Glucose Calcium Troponin I < 0.012 Urine Color Urine Appearance Urine pH Ur Specific [place] Urine Protein Urine Glucose (UA) Urine Ketones Urine Occult Blood Urine Nitrate Urine Bilirubin Urine Urobilinogen Ur Leukocyte Esterase Urine RBC Urine WBC Urine Bacteria Ur Culture Indicated? SARS-CoV-2 (PCR) Negative Blood Type A Negative Antibody Screen Negative 05/30/21 05/30/21 05/31/21 12:45 16:15 04:54 WBC 6.0 5.8 RBC 4.71 4.43 L Hgb 14.7 13.9 Hct 44.0 41.4 MCV 93.4 93.4 MCH 31.2 31.4 MCHC 33.4 33.6 RDW 13.5 13.8 Plt Count 173 161 Neut % (Auto) 51.5 51.5 Lymph % (Auto) 33.9 32.7 [place] % (Auto) 11.5 12.0 Eos % (Auto) 2.5 3.6 Baso % (Auto) 0.6 0.2 Neut # (Auto) 3100 3000 Lymph # (Auto) 2000 1900 [place] # (Auto) 700 700 Eos # (Auto) 200 200 Baso # (Auto) 0 0 Sodium Potassium Chloride Carbon Dioxide BUN Creatinine Estimated GFR BUN/Creatinine Ratio Glucose Calcium Troponin I Urine Color Red Urine Appearance Other Urine pH 5.0 Ur Specific [place] 1.020 Urine Protein 2+ H Urine Glucose (UA) 2+ H Urine Ketones Negative Urine Occult Blood 3+ H Urine Nitrate Negative Urine Bilirubin Negative Urine Urobilinogen 0.2 Ur Leukocyte Esterase Trace H Urine RBC >100/hpf H Urine WBC None seen Urine Bacteria None seen Ur Culture Indicated? Cult not indicated SARS-CoV-2 (PCR) Blood Type Antibody Screen 05/31/21 04:54 WBC RBC Hgb Hct MCV MCH MCHC RDW Plt Count Neut % (Auto) Lymph % (Auto) [place] % (Auto) Eos % (Auto) Baso % (Auto) Neut # (Auto) Lymph # (Auto) [place] # (Auto) Eos # (Auto) Baso # (Auto) Sodium 138 Potassium 4.7 Chloride 107 Carbon Dioxide 29 BUN 21 H Creatinine 1.18 Estimated GFR 58.7 L BUN/Creatinine Ratio 17.8 Glucose 150 H D Calcium 8.6 Troponin I Urine Color Urine Appearance Urine pH Ur Specific [place] Urine Protein Urine Glucose (UA) Urine Ketones Urine Occult Blood Urine Nitrate Urine Bilirubin Urine Urobilinogen Ur Leukocyte Esterase Urine RBC Urine WBC Urine Bacteria Ur Culture Indicated? SARS-CoV-2 (PCR) Blood Type Antibody Screen [facility] Medical History Atrial fibrillation (2013) CAD (coronary artery disease) Chicken pox Colon polyps Glaucoma (2013) Hyperlipidemia Hypertension Insulin resistance Left foot pain Mumps Recurrent sinusitis (1968) Skin cancer (2010) Surgical History Anesthesia History of surgery (1977) Status post arthroscopy (2009) Family History Brother CAD (coronary artery disease) Diabetes mellitus High cholesterol Heart attack Brother Diabetes mellitus Heart disease High cholesterol Daughter Arthritis Father Heart disease Hypertension Mother Aortic valve disease Cancer High cholesterol Sister Cancer High cholesterol Sister Cancer Heavy smoker Daughter No problems noted. Social History marital status: household members: spouse Smoking Status: Never smoker alcohol intake: current substance use type: does not use Discharge Assessment & Plan Assessment and Plan Plan of Treatment: Patient will be followed as outpatient and evaluated for possible surgical evaluation. He will follow-up with his usual primary care doctor in 2 weeks. He will call if recurrence bleeding or pain. Discharge Plan Discharge Plan Patient Disposition: Home Discharge orders & Medications Prescriptions: Continued metformin [Glucophage] 500 mg tablet 500 mg PO BID Qty: 180 RF: 3 lisinopril [Zestril] 20 mg tablet 20 mg PO Q DAY Qty: 90 RF: 3 atorvastatin [Lipitor] 40 mg tablet 40 mg PO HS Qty: 90 RF: 3 metoprolol succinate 25 mg tablet extended release 24 hr See Rx Instructions .ROUTE .COMPLEX Qty: 90 RF: 0 Discontinued Pradaxa 150 mg capsule See Rx Instructions .ROUTE .COMPLEX Qty: 180 RF: 3 Follow up/Referrals: Jong Shine MD [Primary Care Provider] - 2 Weeks (patient to be called for appointment with urology by urology department for appointment this week ) Discharge Health Status Multidrug resistant organism: No MDRO Diet/Activity/Treatments Diet: Diet as Tolerated Skin/Wound/Dressing Care Report to your healthcare provider any signs of infection, such as:: chills, fever, night sweats and increased pain Visit Report/Discharge Packet Instructions: DI for Hematuria, Gastrointestinal Bleeding Discharge Data Primary Care Provider: Jong Shine Attending Provider: Emma Crane VTE Deep Vein Thrombosis/Pulmonary Embolism Present on Admission: No
--- NOTE | 2021-05-31 14:01 | CM.DANOTE ---
Discharge Planning/Care Management DCP: assessment: case received and discussed in Team Rounds. EMR reviewed. Pt is an 86 year old male who admitted yesterday afternoon to care of Alexx Crane. PCP: Erick Shine. Dr. Mattson, senior professional services consultant this weekend for Dr. Shine's clinic was here late morning and did ok pt for a d/c to home. Payer: Medicare and for Life Admission status: OBS: confirmed by UR ROSALIND Denise Went to room to meet with pt and continue the assessment process. ROSALIND Glass confirms he left for home at about 1200. Outpt urology followup as set up by his PCP is planned as per Dr. Suarez's d/c summary. CM Discharge Assessment Start: 05/31/21 14:00 Freq: Status: Active Protocol: Document 05/31/21 14:00 ITV (Rec: 05/31/21 14:01 ITV [id number]) Discharge Planning Assessment Advance Directives? Yes Advance Directives on File No History Provided By Medical Record Household Members spouse
--- NOTE | 2021-06-11 12:52 | PC.NURSE ---
Late Entry; NS infusion initiated 05/30 at 16:34 stopped by MD discharge order 05/31 12:24.
== END 2021-05-31 13:08 | disposition home or self-care (01) ==
LOC: ED 11:27 → AC 13:22
PROVIDERS: Admitting Provider Family Medicine; Emergency Provider Emergency Medicine; PCP Family Medicine; Referring Provider Emergency Medicine; Visit Provider Family Medicine
DX: R93.421 Abnormal radiologic findings on diagnostic imaging of right kidney (principal); R31.0 Gross hematuria; K92.1 Melena; E11.9 Type 2 diabetes mellitus without complications; I10 Essential (primary) hypertension; I48.91 Unspecified atrial fibrillation; Z79.01 Long term (current) use of anticoagulants; Z79.84 Long term (current) use of oral hypoglycemic drugs; E78.5 Hyperlipidemia, unspecified; Z20.822 Contact with and (suspected) exposure to COVID-19
CPT/HCPCS: 36415; 74178; 80048; 80053; 81001; 82550; 82962; 83735; 84484; 85025; 85610; 85730; 86850; 86900; 86901; 87635; 93005; 96360; 96361; 99284; C9803; G0378; Q9967

== ENCOUNTER 2021-07-11 12:23 | Emergency (ER) | payer MEDICARE, OTHER, SELFPAY ==
[2021-05-30 13:28] VITALS: BMI 31.2
[2021-07-11 12:30] VITALS: BP 193/93; PULSE 53; RESP 13; TEMP 36.8; O2SAT 97; BMI 31.3
[2021-07-11 12:36] VITALS: BP 175/83
--- NOTE | 2021-07-11 12:46 | DI.US.S_ITS ---
PROCEDURE: US PERIPH VENOUS LOW EXTREM LT INDICATIONS: RULE OUT DEEP VEIN THROMBOSIS TECHNIQUE: Real-time imaging, as well as color and pulse Doppler interrogation, were performed of the lower extremity deep veins from the inguinal ligament to the popliteal fossa. COMPARISON: None. FINDINGS: The common femoral, femoral and popliteal veins are normally compressible, and free of intraluminal thrombus. Color and pulse Doppler demonstrate normal phasic intraluminal flow. There is normal augmentation response to distal compression maneuver. Varicose veins are noted. IMPRESSION: No DVT in the left lower extremity. Dictated by: Luke Galindo M.D. on 07/11/2021 at 14:08 Approved by: Luke Galindo M.D. on 07/11/2021 at 14:10
--- NOTE | 2021-07-11 13:11 | ED.EXTPRO ---
HPI - Extremity Problem <Rogelio High PA-C - Last Filed: 07/11/21 14:33> General Chief complaint: Extremity Problem,Nontraumatic Stated complaint: left knee pain, needs ultrasound Time Seen by Provider: 07/11/21 12:34 Source: patient Mode of arrival: Ambulatory History of Present Illness HPI Narrative: Vance presents today with his for chief complaint of left lower leg swelling and knee pain that started 2 days ago. He reports that he is going to have surgery for his recently diagnosed kidney cancer in 1 week and has been taking off of his anticoagulation for his chronic atrial fibrillation a week and half ago. He denies any significant trauma to the area, bruising, skin changes, chest pain, shortness of breath or any other acute concerns or complaints at this time. Related Data Previous Rx's Medication Instructions Recorded atorvastatin 40 mg tablet (Lipitor) 40 mg PO HS #90 tab 08/08/20 metformin 500 mg tablet 500 mg PO BID #180 tab 08/08/20 (Glucophage) metoprolol succinate 25 mg See Rx Instructions .ROUTE 05/27/21 tablet,extended release 24 hr .COMPLEX #90 tab lisinopril 20 mg tablet (Zestril) 20 mg PO Q DAY #90 tab 07/11/21 Allergies Allergy/AdvReac Type Severity Reaction Status Date / Time No Known Drug Allergies Allergy Verified 07/11/21 12:33 Review of Systems <Rogelio High PA-C - Last Filed: 07/11/21 14:33> Review of Systems Narrative: As per HPI Patient History <Rogelio High PA-C - Last Filed: 07/11/21 14:33> Medical History Atrial fibrillation (2013) CAD (coronary artery disease) Chicken pox Colon polyps Glaucoma (2013) Hyperlipidemia Hypertension Insulin resistance Left foot pain Mumps Recurrent sinusitis (1968) Skin cancer (2010) Surgical History Anesthesia History of surgery (1977) Status post arthroscopy (2009) Family History Brother CAD (coronary artery disease) Diabetes mellitus High cholesterol Heart attack Brother Diabetes mellitus Heart disease High cholesterol Daughter Arthritis Father Heart disease Hypertension Mother Aortic valve disease Cancer High cholesterol Sister Cancer High cholesterol Sister Cancer Heavy smoker Daughter No problems noted. Social History marital status: household members: spouse Smoking Status: Never smoker alcohol intake: current substance use type: does not use Smoking Status: Never smoker alcohol intake frequency: 0-2 drinks per day Substance Use Type: does not use Exam <Rogelio High PA-C - Last Filed: 07/11/21 14:33> Narrative Exam Narrative: Exam Narrative: Const General: cooperative, healthy appearing, comfortable, no acute distress, well developed and well groomed Nutritional Appearance: average body habitus Orientation: alert and oriented x3 HENMT Head: normal to inspection and atraumatic Ears: hearing grossly normal bilaterally Nose: external nose normal and nares normal Face and sinus: normal facial exam Neck Neck: normal visual inspection and supple Resp Effort & Inspection: normal respiratory effort, able to speak in complete sentences, no audible wheezes, not labored, no nasal flaring and no respiratory distress, clear to auscultation bilaterally Cardiac Bradycardic rate, irregularly irregular rhythm, no discernible murmurs. Extremities Slightly enlarged left lower leg soft tissue tenderness over medial aspect of left knee. Varicosities present. No bony tenderness noted. Full range of motion of knee. Neuro General: alert, oriented x3, gait normal, tone normal and moves all extremities Cognition: normal cognition Speech: speech normal Gait: normal gait Psych Appearance: grossly normal and well kempt Mental Status: mental status grossly normal Speech and Movement: speech and movement normal Mood: congruent mood Affect: normal affect Initial Vital Signs Initial Vital Signs: Vital Signs Temperature 98.3 F 07/11/21 12:30 Pulse Rate 53 L 07/11/21 12:30 Respiratory Rate 13 07/11/21 12:30 Blood Pressure 193/93 H 07/11/21 12:30 Pulse Oximetry 97 07/11/21 12:30 <Doreen Taveras DO - Last Filed: 07/13/21 15:35> Initial Vital Signs Initial Vital Signs: Vital Signs Temperature 98.3 F 07/11/21 12:30 Pulse Rate 53 L 07/11/21 12:30 Respiratory Rate 13 07/11/21 12:30 Blood Pressure 193/93 H 07/11/21 12:30 Pulse Oximetry 97 07/11/21 12:30 Course <Rogelio High PA-C - Last Filed: 07/11/21 14:33> Orders Ordered: ED Orders 07/11/21 12:46 US periph venous low extrem lt Stat 07/11/21 13:00 Basic Metabolic Panel Stat Complete Blood Count AUTO DIFF Stat D Dimer Stat Vital Signs Vital signs: Vital Signs - 8 hr 07/11/21 12:30 07/11/21 12:36 Temperature 98.3 F Pulse Rate 53 L Respiratory Rate 13 Blood Pressure 193/93 H 175/83 H Pulse Oximetry 97 <Doreen Taveras DO - Last Filed: 07/13/21 15:35> Orders Ordered: ED Orders 07/11/21 12:46 perip venous low extrem lt Stat 07/11/21 13:00 Basic Metabolic Panel Stat Complete Blood Count AUTO DIFF Stat D Dimer Stat Vital Signs Vital signs: Vital Signs - 8 hr 07/11/21 12:30 07/11/21 12:36 Temperature 98.3 F Pulse Rate 53 L Respiratory Rate 13 Blood Pressure 193/93 H 175/83 H Pulse Oximetry 97 MDM - Extremity (Nontraumatic) <Rogelio High PA-C - Last Filed: 07/11/21 14:33> Lab Data Result diagrams: 07/11/21 13:00 07/11/21 13:00 Labs: Lab Results 07/11/21 07/11/21 07/11/21 Range/Units 13:00 13:00 13:00 WBC 6.1 (4.5-11.0) X10^3/uL RBC 4.61 (4.5-5.9) X10^6/uL Hgb 14.3 (13.5-17.5) g/dL Hct 42.5 (41-53) % MCV 92.2 (80-100) fL MCH 30.9 (26-34) PG MCHC 33.6 (30-36) % RDW 13.4 (11.6-14.8) % Plt Count 169 (150-400) X10^3/uL Neut % (Auto) 53.0 (50-75) % Lymph % (Auto) 31.8 (25-40) % [place] % (Auto) 12.0 (3-14) % Eos % (Auto) 2.9 (2-4) % Baso % (Auto) 0.3 (0-2) % Neut # (Auto) 3200 (0745-9979) /uL Lymph # (Auto) 1900 (9575-2598) /uL [place] # (Auto) 700 (0-900) /uL Eos # (Auto) 200 (0-450) /uL Baso # (Auto) 0 (0-100) /uL D-Dimer 734 H (<230) ng/mL Sodium 139 (137-145) mmol/L Potassium 5.0 (3.4-5.1) mmol/L Chloride 105 (98-107) mmol/L Carbon Dioxide 32 (22-32) mmol/L BUN 22 H (9-20) mg/dL Creatinine 1.16 (0.66-1.25) mg/dL Estimated GFR 59.8 L (>60) mL/min BUN/Creatinine Ratio 19.0 (6-22) Glucose 146 H (80-110) mg/dL Calcium 9.3 (8.4-10.2) mg/dL MDM Narrative Medical decision making narrative: Patient's blood work and ultrasound are reassuring for no DVT at this time. No significant overlying skin abnormalities that would suggest infection. He does not have any significant bony tenderness and there is no history of trauma or injury. We considered getting an x-ray but declined at this time. We will try ice, stretching, range of motion activities initially with PCP follow-up if symptoms fail to improve. ER return precautions were discussed with the patient and his . Patient verbalizes understanding and agrees to plan and has no further concerns at this time. Thank you A [id number] system was used with the dictation of this note. Please disregard any spelling or grammatical errors. <Doreen Taveras, DO - Last Filed: 07/13/21 15:35> Lab Data Labs: Lab Results 07/11/21 07/11/21 07/11/21 Range/Units 13:00 13:00 13:00 WBC 6.1 (4.5-11.0) X10^3/uL RBC 4.61 (4.5-5.9) X10^6/uL Hgb 14.3 (13.5-17.5) g/dL Hct 42.5 (41-53) % MCV 92.2 (80-100) fL MCH 30.9 (26-34) PG MCHC 33.6 (30-36) % RDW 13.4 (11.6-14.8) % Plt Count 169 (150-400) X10^3/uL Neut % (Auto) 53.0 (50-75) % Lymph % (Auto) 31.8 (25-40) % [place] % (Auto) 12.0 (3-14) % Eos % (Auto) 2.9 (2-4) % Baso % (Auto) 0.3 (0-2) % Neut # (Auto) 3200 (0167-5277) /uL Lymph # (Auto) 1900 (9362-6504) /uL [place] # (Auto) 700 (0-900) /uL Eos # (Auto) 200 (0-450) /uL Baso # (Auto) 0 (0-100) /uL D-Dimer 734 H (<230) ng/mL Sodium 139 (137-145) mmol/L Potassium 5.0 (3.4-5.1) mmol/L Chloride 105 (98-107) mmol/L Carbon Dioxide 32 (22-32) mmol/L BUN 22 H (9-20) mg/dL Creatinine 1.16 (0.66-1.25) mg/dL Estimated GFR 59.8 L (>60) mL/min BUN/Creatinine Ratio 19.0 (6-22) Glucose 146 H (80-110) mg/dL Calcium 9.3 (8.4-10.2) mg/dL Discharge Plan Departure Patient Disposition: Home Clinical Impression: Knee pain, left Qualifiers: Chronicity: unspecified Qualified Code(s): M25.562 - Pain in left knee Activity Restrictions/Additional Instructions: It was very nice to meet you this afternoon. Your evaluation today has been reassuring. Your blood work as well as ultrasound are reassuring for no blood clot at this time. I do not suspect any acute bony injury. Please apply ice, do light range of motion activities and follow-up with your PCP as needed. You experience worsening pain, worsening swelling, shortness of breath or any other acute concerns or complaints do not hesitate to return for re-evaluation. Thank you Rogelio High PA-C Prescriptions: No Action metformin [Glucophage] 500 mg tablet 500 mg PO BID Qty: 180 RF: 3 atorvastatin [Lipitor] 40 mg tablet 40 mg PO HS Qty: 90 RF: 3 metoprolol succinate 25 mg tablet extended release 24 hr See Rx Instructions .ROUTE .COMPLEX Qty: 90 RF: 0 lisinopril [Zestril] 20 mg tablet 20 mg PO Q DAY Qty: 90 RF: 3 Referrals: Jong Shine MD [Primary Care Provider] - <Doreen Taveras DO - Last Filed: 07/13/21 15:35> Cosign ED Attending Cosignature Attestation: I was immediately available in the department for consultation. Documentation has been reviewed.
[2021-07-11 13:12] LABS: Add Manual Diff / Slide Review NO; Basophils Absolute Auto 0 /uL (0-100); Basophils Percent Auto 0.3 % (0-2); Eosinophils Absolute Auto 200 /uL (0-450); Eosinophils Percent Auto 2.9 % (2-4); Hematocrit 42.5 % (41-53); Hemoglobin 14.3 g/dL (13.5-17.5); Lymphocytes Absolute Auto 1900 /uL (1100-4500); Lymphocytes Percent Auto 31.8 % (25-40); Mean Corpuscular HGB Conc 33.6 % (30-36); Mean Corpuscular Hemoglobin 30.9 PG (26-34); Mean Corpuscular Volume 92.2 fL (80-100); Monocytes Absolute Auto 700 /uL (0-900); Neutrophils Absolute Auto 3200 /uL (1500-7000); Platelet Count 169 X10^3/uL (150-400); Red Blood Cell Count 4.61 X10^6/uL (4.5-5.9); Red Cell Distribution Width 13.4 % (11.6-14.8); White Blood Cell Count 6.1 X10^3/uL (4.5-11.0)
[2021-07-11 13:27] LABS: Blood Urea Nitrogen 22 mg/dL (9-20); Calcium 9.3 mg/dL (8.4-10.2); Carbon Dioxide 32 mmol/L (22-32); Chloride 105 mmol/L (98-107); Estimated Glomerular Filt Rate 59.8 mL/min (>60); Glucose 146 mg/dL (80-110); HEMOLYSIS < 15 (0-50); Sodium 139 mmol/L (137-145)
[2021-07-11 13:53] LABS: D Dimer 734 ng/mL (<230)
[2021-07-11 14:30] VITALS: BP 181/85; PULSE 45; RESP 18; O2SAT 97
== END 2021-07-11 14:30 | disposition home or self-care (01) ==
PROVIDERS: Emergency Provider Physician Assistant; PCP Family Medicine
DX: M25.562 Pain in left knee (principal); M79.89 Other specified soft tissue disorders; Z79.01 Long term (current) use of anticoagulants
CPT/HCPCS: 36415; 80048; 85025; 85379; 93971; 99283; 99284

== ENCOUNTER → 2021-07-18 08:58 | Outpatient (CLI) | payer MEDICARE, OTHER, SELFPAY ==
[2021-05-30 13:28] VITALS: BMI 31.2
--- NOTE | 2021-07-18 | DI.MRI.S_ITS ---
PROCEDURE: MR ABDOMEN WO/W CON INDICATIONS: Liver disease disorders of kidney and ureter TECHNIQUE: Coronal HASTE, axial 2D FLASH in- and [id number]; axial breath-hold T2 FSE. Dynamic axial VIBE during the administration of contrast; post-contrast coronal VIBE or 2D FLASH with fat saturation from the hepatic dome to the iliac crests. Restricted diffusion weighted imaging and ADC performed. COMPARISON: [facility], CT, CT CHEST W CON, 07/18/2021, 9:06. [facility], CT, CT ABDOMEN PELVIS WO/W CON, 05/30/2021, 14:17. FINDINGS: Image quality: Excellent. Lung bases: No basal pleural effusions. Heart size is normal. Solid organs: Liver is normal in size. No focal lesion. The renal lesion abuts the liver. Gallbladder is not significantly distended. No gallstones identified. Biliary system is non dilated. Pancreas is normal in morphology. Spleen is normal in size and enhancement. No adrenal nodules. Right kidney superior pole lobular exophytic mass measuring 5 x 5 cm, (18/43). The mass is heterogeneous T2 hyperintense, intrinsic T1 isointense, heterogeneous arterial hyperenhancing, no washout, and there is restricted diffusion. The lesion abuts the liver without definite invasion. Right renal vein is patent. Small T2 hyperintense simple cysts in both kidneys. Largest on the right measures 1.5 cm at the superior pole. No hydronephrosis. Nodes and vessels: No retroperitoneal or mesenteric adenopathy by size criteria. Aorta and inferior vena cava are normal in size. Atherosclerotic plaque. Bowel and peritoneum: Unenhanced bowel loops are normal in caliber. No free fluid. Bones and soft tissues: No ventral hernias. Tiny T2 hyperintense skin nodule at the right abdominal wall without enhancement. Bone marrow is normal in overall signal. IMPRESSION: 1. Right kidney superior pole exophytic heterogeneous enhancing mass measuring 5 cm is consistent with renal cell carcinoma. 2. Right renal lesion abuts the liver. No definite invasion. 3. No metastatic disease demonstrated. No enlarged lymph nodes. Dictated by: Nasir Casey M.D. on 07/18/2021 at 10:25 Approved by: Nasir Casey M.D. on 07/18/2021 at 10:53
--- NOTE | 2021-07-18 10:13 | DI.CT.S_ITS ---
PROCEDURE: CT CHEST W CON INDICATIONS: Liver disease disorders of kidney and ureter TECHNIQUE: After the administration of intravenous contrast, 5 mm thick sections acquired from the pulmonary apices to the posterior costophrenic angles. 1 mm axial lung, 5 mm thick coronal and sagittal reformats and 7 mm axial MIP were acquired. For radiation dose reduction, the following was used: automated exposure control, adjustment of mA and/or kV according to patient size. COMPARISON: None. FINDINGS: Image quality: Excellent. Lungs and pleura: No suspicious nodules or acute air space opacities. No pleural effusions or pneumothorax. Central and peripheral airways are patent and normal in caliber. Mediastinum: Heart size is mildly enlarged. No pericardial effusion. No mediastinal or hilar adenopathy by size criteria. Thoracic aorta is normal caliber and demonstrates scattered arch calcification. The outflow tract and central main pulmonary arteries are enlarged. Esophagus is normal in caliber. No hiatal hernia. Bones and chest wall: No suspicious bony lesions. Degenerative disc and endplate changes in the thoracic spine. No vertebral body compression fractures. No axillary or supraclavicular adenopathy by size criteria. Thyroid gland is normal . Abdomen: A partially imaged lobulated exophytic mass measuring at least 4.8 cm arises from the upper medial aspect of the right kidney and compresses and possibly extends into the right lobe liver. No other solid organ abnormalities. IMPRESSION: 1. No suspicious lung nodule or adenopathy in the chest to suggest metastatic disease above the diaphragm. 2. Cardiomegaly and enlargement of main pulmonary arteries. Correlate with cardiac history. Dictated by: Angelita Ascencio M.D. on 07/18/2021 at 11:09 Approved by: Angelita Ascencio M.D. on 07/18/2021 at 11:16
== END ==
PROVIDERS: PCP Family Medicine; Referring Provider Urology; Visit Provider Urology
DX: N28.89 Other specified disorders of kidney and ureter (principal); K76.9 Liver disease, unspecified; I51.7 Cardiomegaly
CPT/HCPCS: 71260; 74183; Q9967

== ENCOUNTER → 2021-08-19 16:39 | Outpatient (CLI) | payer MEDICARE, OTHER, SELFPAY ==
[2021-08-15 15:16] VITALS: BMI 31.2
[2021-08-19 17:55] LABS: BUN Creatinine Ratio 13.7 (6-22); Blood Urea Nitrogen 29 mg/dL (9-20); Calcium 9.4 mg/dL (8.4-10.2); Carbon Dioxide 32 mmol/L (22-32); Chloride 102 mmol/L (98-107); Glucose 156 mg/dL (80-110); HEMOLYSIS < 15 (0-50); Potassium 4.8 mmol/L (3.4-5.1); Sodium 142 mmol/L (137-145)
== END ==
PROVIDERS: PCP Family Medicine; Referring Provider Physician Assistant; Visit Provider Physician Assistant
DX: E11.9 Type 2 diabetes mellitus without complications (principal); I10 Essential (primary) hypertension; Z90.5 Acquired absence of kidney
CPT/HCPCS: 36415; 80048

== ENCOUNTER → 2021-09-11 14:17 | Outpatient (CLI) | payer MEDICARE, OTHER, SELFPAY ==
[2021-08-15 15:16] VITALS: BMI 31.2
[2021-09-11 15:58] LABS: Hemoglobin A1C% w Est Avg Glu 7.5 % (4.0-6.0)
[2021-09-11 17:09] LABS: BUN Creatinine Ratio 16.2 (6-22); Blood Urea Nitrogen 32 mg/dL (9-20); Calcium 9.7 mg/dL (8.4-10.2); Carbon Dioxide 29 mmol/L (22-32); Chloride 104 mmol/L (98-107); Estimated Glomerular Filt Rate 32.5 mL/min (>60); Glucose 117 mg/dL (80-110); HEMOLYSIS < 15 (0-50); Potassium 4.9 mmol/L (3.4-5.1); Sodium 141 mmol/L (137-145)
== END ==
PROVIDERS: PCP Family Medicine; Referring Provider Physician Assistant; Visit Provider Physician Assistant
DX: E11.9 Type 2 diabetes mellitus without complications (principal); Z90.5 Acquired absence of kidney
CPT/HCPCS: 36415; 80048; 83036

== ENCOUNTER → 2021-10-08 11:41 | Outpatient (CLI) | payer MEDICARE, OTHER, SELFPAY ==
[2021-08-15 15:16] VITALS: BMI 31.2
[2021-10-08 12:28] LABS: Hemoglobin A1C% w Est Avg Glu 7.2 % (4.0-6.0)
[2021-10-08 12:45] LABS: BUN Creatinine Ratio 15.9 (6-22); Blood Urea Nitrogen 32 mg/dL (9-20); Calcium 9.6 mg/dL (8.4-10.2); Carbon Dioxide 30 mmol/L (22-32); Chloride 104 mmol/L (98-107); Estimated Glomerular Filt Rate 31.7 mL/min (>60); Glucose 151 mg/dL (80-110); HEMOLYSIS < 15 (0-50); Sodium 138 mmol/L (137-145)
== END ==
PROVIDERS: PCP Family Medicine; Referring Provider Physician Assistant; Visit Provider Physician Assistant
DX: E11.9 Type 2 diabetes mellitus without complications (principal); Z90.5 Acquired absence of kidney; I10 Essential (primary) hypertension; R79.89 Other specified abnormal findings of blood chemistry
CPT/HCPCS: 36415; 80048; 83036

== ENCOUNTER 2022-08-13 12:08 | Emergency (ER) | payer MEDICARE, OTHER, SELFPAY ==
[2021-08-15 15:16] VITALS: BMI 31.2
[2022-08-13 12:11] VITALS: BP 175/81; PULSE 54; RESP 15; TEMP 35.9; O2SAT 98; BMI 30.9
--- NOTE | 2022-08-13 12:14 | DI.US.S_ITS ---
PROCEDURE: PERIP VENOUS LOW EXTREM LT INDICATIONS: Left leg pain for 2 days, please evaluate for DVT TECHNIQUE: Real-time imaging, as well as color and pulse Doppler interrogation, were performed of the lower extremity deep veins from the inguinal ligament to the popliteal fossa. COMPARISON: [facility], , [facility] VENOUS LOW EXTREM LT, 07/11/2021, 13:42. FINDINGS: The common femoral, femoral and popliteal veins are normally compressible, and free of intraluminal thrombus. Color and pulse Doppler demonstrate normal phasic intraluminal flow. There is normal augmentation response to distal compression maneuver. Superficial, patent varicose veins with wall thickening can be seen involving the posterior calf at the area of pain. IMPRESSION: Negative for deep venous thrombosis. Superficial, patent varicose veins can be seen at the area of clinical concern involving the posterior calf. Dictated by: Yassine Fletcher M.D. on 08/13/2022 at 12:56 Approved by: Yassine Fletcher M.D. on 08/13/2022 at 12:57
--- NOTE | 2022-08-13 15:56 | ED_ITS ---
HPI - Extremity Problem <Walt Benson PA-C - Last Filed: 08/13/22 16:22> General Chief complaint: Extremity Problem,Nontraumatic Stated complaint: [facility] sent pos. Lt. leg blood clot Time Seen by Provider: 08/13/22 15:49 Source: patient Mode of arrival: Ambulatory History of Present Illness HPI Narrative: This is a 87-year-old male presents to the emergency department due to 3 day history of left calf pain. States that his left calf does ?always bigger? in his right calf due to an injury approximately 50 years ago. States that he does have a history of varicose veins. Denies any chest pain shortness of breath or fevers. Patient was recently seen at the walk-in clinic and sent here for ultrasound to evaluate for DVT. Related Data Previous Rx's Medication Instructions Recorded lisinopril 20 mg tablet (Zestril) 20 mg PO Q DAY #90 tabs 07/11/21 metformin 500 mg tablet 1,000 mg PO BID #180 tabs 07/14/21 metoprolol succinate 25 mg See Rx Instructions .Route 08/28/21 tablet,extended release 24 hr .COMPLEX #90 tabs atorvastatin 40 mg tablet See Rx Instructions .Route 07/13/22 .COMPLEX #90 tabs apixaban 5 mg tablet (Eliquis) See Rx Instructions .Route 07/24/22 .COMPLEX #180 tabs Allergies Allergy/AdvReac Type Severity Reaction Status Date / Time No Known Drug Allergies Allergy Verified 08/13/22 12:11 Review of Systems <Walt Benson PA-C - Last Filed: 08/13/22 16:22> Review of Systems Narrative: GENERAL: Denies chills, fatigue, malaise, fever, sweats. HEENT: Denies sinus pain, ear pain, sore throat, difficulty swallowing, dizziness. RESPIRATORY: Denies dyspnea, cough, wheezing, hemoptysis, sputum. CARDIOVASCULAR: Denies chest pain, palpitations, orthopnea, edema, GASTROINTESTINAL: Denies nausea, vomiting, abdominal pain, diarrhea, constipation, melena. : Denies dysuria, frequency, incontinence, hematuria, urinary retention. MUSCULOSKELETAL: Left calf pain SKIN: Denies rash, skin lesions, or other NEUROLOGIC: Denies weakness, headache, numbness, change in speech, confusion, seizures, incoordination. PSYCHIATRIC: No concerning psychosocial issues. 12 point review of systems is negative except for those stated above Patient History <Walt Benson PA-C - Last Filed: 08/13/22 16:22> Medical History (Updated 08/13/22 @ 15:59 by Walt Benson PA-C) Anticoagulation adequate Atrial fibrillation (2013) CAD (coronary artery disease) Chicken pox Colon polyps Glaucoma (2013) Hyperlipidemia Hypertension Insulin resistance Left foot pain Mumps Recurrent sinusitis (1968) Skin cancer (2010) Surgical History Anesthesia History of surgery (1977) Status post arthroscopy (2009) Family History Brother CAD (coronary artery disease) Diabetes mellitus High cholesterol Heart attack Brother Diabetes mellitus Heart disease High cholesterol Daughter Arthritis Father Heart disease Hypertension Mother Aortic valve disease Cancer High cholesterol Sister Cancer High cholesterol Sister Cancer Heavy smoker Daughter No problems noted. Social History marital status: household members: spouse Smoking Status: Never smoker alcohol intake: current substance use type: does not use Smoking Status: Never smoker alcohol intake frequency: 0-2 drinks per day Substance Use Type: does not use Exam <Walt Benson PA-C - Last Filed: 08/13/22 16:22> Narrative Exam Narrative: GENERAL: Well-developed patient, in mild distress. HEAD: Atraumatic. Normocephalic. EYES: Pupils equal round and reactive. Extraocular motions intact. No scleral icterus. No injection or drainage. ENT: Nose without bleeding, purulent drainage. Throat without erythema, tonsill ar hypertrophy or exudate. Airway patent. NECK: Trachea midline. Non tender CARDIOVASCULAR: Regular rate and rhythm without murmurs, gallops, or rubs. RESPIRATORY: Clear to auscultation. Breath sounds equal bilaterally. No wheezes, rales, or rhonchi. GASTROINTESTINAL: Abdomen soft, non-tender, nondistended. EXTREMITIES: Left calf is slightly larger than right calf with extensive varicose veins. 3+ dorsalis pedis pulse. BACK: Nontender without deformity or crepitance. No flank tenderness. NEURO: AOx3. SKIN: No rash or erythema of visible areas Initial Vital Signs Initial Vital Signs: Vital Signs Temperature 96.7 F L 08/13/22 12:11 Pulse Rate 54 L 08/13/22 12:11 Respiratory Rate 15 08/13/22 12:11 Blood Pressure 175/81 H 08/13/22 12:11 Pulse Oximetry 98 08/13/22 12:11 Oxygen Delivery Method 08/13/22 12:11 <Madonna Torres DO - Last Filed: 08/14/22 08:08> Initial Vital Signs Initial Vital Signs: Vital Signs Temperature 96.7 F L 08/13/22 12:11 Pulse Rate 54 L 08/13/22 12:11 Respiratory Rate 15 08/13/22 12:11 Blood Pressure 175/81 H 08/13/22 12:11 Pulse Oximetry 98 08/13/22 12:11 Oxygen Delivery Method 08/13/22 12:11 Course <Walt Benson PA-C - Last Filed: 08/13/22 16:22> Orders Ordered: ED Orders 08/13/22 12:14 US periph venous low extrem lt Stat Vital Signs Vital signs: Vital Signs - 8 hr 08/13/22 12:11 Temperature 96.7 F L Pulse Rate 54 L Respiratory Rate 15 Blood Pressure 175/81 H Pulse Oximetry 98 Oxygen Delivery Method Room Air <DO Jesus Parrish Last Filed: 08/14/22 08:08> Orders Ordered: ED Orders 08/13/22 12:14 US periph venous low extrem lt Stat Vital Signs Vital signs: Vital Signs - 8 hr 08/13/22 12:11 Temperature 96.7 F L Pulse Rate 54 L Respiratory Rate 15 Blood Pressure 175/81 H Pulse Oximetry 98 Oxygen Delivery Method Room Air MDM - Extremity (Nontraumatic) <Walt Benson PA-C - Last Filed: 08/13/22 16:22> Imaging Data US - DVT: Radiologist's Impression: [address] [id number] ReportSigned Patient: Vance Maria JR EMR#: [id number]: 6Acct:[id number]/Sex: 87 / MDate of Service: 08/13/22Loc: EDAccession Number: [id number] Procedure: US periph venous low extrem lt Ordering Provider: Madonna Torres D.O. PROCEDURE: US PERIPH VENOUS LOW EXTREM LT INDICATIONS: Left leg pain for 2 days, please evaluate for DVT TECHNIQUE: Real-time imaging, as well as color and pulse Doppler interrogation, were performed of the lower extremity deep veins from the inguinal ligament to the popliteal fossa. COMPARISON: [facility], , US PERIP VENOUS LOW EXTREM LT, 07/11/2021, 13:42. FINDINGS: The common femoral, femoral and popliteal veins are normally compressible, and free of intraluminal thrombus. Color and pulse Doppler demonstrate normal phasic intraluminal flow. There is normal augmentation response to distal compression maneuver. Superficial, patent varicose veins with wall thickening can be seen involving the posterior calf at the area of pain. IMPRESSION: Negative for deep venous thrombosis. Superficial, patent varicose veins can be seen at the area of clinical concern involving the posterior calf. Dictated by: Yassine Fletcher M.D. on 08/13/2022 at 12:56 Approved by: Yassine Fletcher M.D. on 08/13/2022 at 12:57 MDM Narrative Medical decision making narrative: 87-year-old male presents to the emergency department complaining of left calf pain. Sent by walk-in clinic to rule out DVT. Ultrasound negative for DVT did know extensive varicose veins. Suspect muscular strain or possible pain secondary to varicose veins. Recommend follow up with primary care provider if pain continues. Distally neurovascularly intact no concern for any kind of occlusion. Patient's blood pressure was noted to be elevated but he would not present with any evidence of end-organ damage including chest pain, headaches, shortness breath, or hematuria. Recommend he follow up with his primary care provider for management of his daily Losartan pill. Discharge Plan Departure Patient Disposition: Home Clinical Impression: Calf pain Activity Restrictions/Additional Instructions: Thank you for coming to the [facility] Emergency Department today. The ultrasound was negative for any kind of blood clot in your left leg. I suspect this is mild muscular strain that should improve over time. Please follow-up with your primary care provider if the symptoms continue. I hope you feel better soon. Prescriptions: No Action lisinopril [Zestril] 20 mg tablet 20 mg PO Q DAY Qty: 90 3RF Hold Instructions: held by metformin 500 mg tablet 1,000 mg PO BID Qty: 180 3RF Hold Instructions: held by post op - low GFR metoprolol succinate 25 mg tablet extended release 24 hr See Rx Instructions .ROUTE .COMPLEX Qty: 90 3RF Dose Instruction: TAKE 1 TABLET DAILY Rx Instructions: TAKE 1 TABLET DAILY atorvastatin 40 mg tablet See Rx Instructions .ROUTE .COMPLEX Qty: 90 3RF Dose Instruction: TAKE 1 TABLET AT BEDTIME Rx Instructions: TAKE 1 TABLET AT BEDTIME Eliquis 5 mg tablet See Rx Instructions .ROUTE .COMPLEX Qty: 180 0RF Dose Instruction: TAKE 1 TABLET TWICE A DAY Rx Instructions: TAKE 1 TABLET TWICE A DAY Referrals: Jong Shine MD [Primary Care Provider] - Visit Report Forms: Patient Portal/API <Madonna Torres DO - Last Filed: 08/14/22 08:08> Cosign ED Attending Reddature Attestation: I was immediately available in the department for consultation. Documentation has been reviewed. I agree with assessment and plan.
--- NOTE | 2022-08-13 16:22 | PC.NURSE ---
Pt states he was out for a walk when his calf suddenly started to hurt, today it felt less painful but his was worried about blood clots since he has Afib. pt does take eliquis bid. no new swelling, redness or feeling hot to the touch.
[2022-08-13 16:23] VITALS: BP 197/86; PULSE 55; RESP 20; O2SAT 99
== END 2022-08-13 16:25 | disposition home or self-care (01) ==
PROVIDERS: Emergency Provider Physician Assistant Medical; PCP Family Medicine
DX: M79.605 Pain in left leg (principal); Z86.718 Personal history of other venous thrombosis and embolism
CPT/HCPCS: 93971; 99281; 99283